=== PATIENT | female | born 1955 | race Hispanic/Latino ===

== ENCOUNTER 2019-02-14 13:52 | Outpatient (CLI) | payer OTHER ==
--- NOTE | 2019-02-14 14:15 | RAD ---
EXAM: XR Lumbar Spine 2 Or 3 View PROVIDED CLINICAL HISTORY: Poly osteoarthritis. Patient claims of low back pain. Disability evaluation/arthritis. COMPARISON: None FINDINGS: There are 5 nonrib-bearing lumbar-type vertebral bodies. Multilevel osteophytes are present. There is narrowing of the L3-4 and L4-5 intervertebral disc spaces. Facet degenerative changes are seen in the lower lumbar spine. The vertebral body heights are within normal limits. No fracture or subluxati on is seen. Vascular calcifications are seen in the abdominal aorta and involving the iliac arteries. IMPRESSION: Degenerative changes in the lumbar spine greatest at the L4-5 and L5-S1 levels.
== END 2019-02-14 13:53 | disposition home or self-care (01) ==
LOC: NAV RAD 13:52
PROVIDERS: ATTEND Family Medicine
DX: M15.9 Polyosteoarthritis, unspecified (principal); M47.816 Spondylosis without myelopathy or radiculopathy, lumbar region; M47.817 Spondylosis without myelopathy or radiculopathy, lumbosacral region
CPT/HCPCS: 72100